=== PATIENT | female | born 1990 | race Caucasian/White ===

== ENCOUNTER → 2017-10-18 | Outpatient (CLI) | payer OTHER ==
[~2017-10-18] MED LIST: FLUO20CA19 PO; IBUP-1222 PO; PREN1TAB60 PO
== END | disposition home or self-care (01) ==
LOC: LAB 09:16
PROVIDERS: ATTEND Obstetrics & Gynecology Maternal & Fetal Medicine
DX: Z36.9 Encounter for antenatal screening, unspecified (principal)
CPT/HCPCS: 36415; 84163; 84702

== ENCOUNTER → 2017-11-18 | Outpatient (CLI) | payer OTHER | END | disposition home or self-care (01) | LOC: LAB 14:11 | PROVIDERS: ATTEND Obstetrics & Gynecology | DX: Z36.89 Encounter for other specified antenatal screening (principal) | CPT/HCPCS: 36415; 82105; 82677; 84702; 86336 ==

== ENCOUNTER 2018-02-12 10:54 | Outpatient (CLI) | payer OTHER ==
[~2018-02-12] VITALS: Ht 172.7 cm; Wt 70.0 kg
[2018-02-12 11:03] VITALS: BP 117/71
[2018-02-12 12:07] LABS: MICROSCOPIC NOT IND
[2018-02-12 12:20] LABS: CULTURE INDICATED? NO
== END 2018-02-12 13:08 | disposition home or self-care (01) ==
LOC: LDOP 10:54
PROVIDERS: ATTEND Obstetrics & Gynecology
DX: O26.892 Other specified pregnancy related conditions, second trimester (principal); R10.9 Unspecified abdominal pain; Z3A.00 Weeks of gestation of pregnancy not specified
CPT/HCPCS: 36415; 59025; 81003; 82731; 99201; G0463

== ENCOUNTER 2018-04-06 11:10 | Outpatient (CLI) | payer OTHER ==
[~2018-04-06] VITALS: Ht 172.7 cm; Wt 74.1 kg
[2018-04-06 11:38] VITALS: BP 111/65
== END 2018-04-06 12:20 ==
LOC: LDOP 11:10
PROVIDERS: ATTEND Obstetrics & Gynecology
DX: O36.8130 Decreased fetal movements, third trimester, not applicable or unspecified (principal); Z3A.37 37 weeks gestation of pregnancy
CPT/HCPCS: 59025; 99211; G0463

== ENCOUNTER 2018-04-15 05:00 | Inpatient (IN) | payer OTHER ==
[~2018-04-15] VITALS: Ht 172.7 cm; Wt 75.4 kg
[2018-04-15] MEDS ORDERED: OXYTOCIN 30U/ 0.9% NaCL 500ML 500 ML IV PRN (05:24)
[2018-04-15] MEDS ORDERED: OXYTOCIN 30U/ 0.9% NaCL 500ML 500 ML IV ONE (05:24)
[2018-04-15] MEDS ORDERED: NEWBORN KIT ONE ×2 (05:25→05:26)
[2018-04-15] MEDS ORDERED: OXYTOCIN 30U/ 0.9% NaCL 500ML 500 ML ONE ×2 (05:25→21:37)
[2018-04-15] MEDS ORDERED: FENTANYL PF 100 MCG/2ML IV PRN (05:30)
[2018-04-15] MEDS ORDERED: FENTANYL PF 100 MCG/2ML IVPush PRN (05:30)
[2018-04-15] MEDS ORDERED: PENICILLIN GK 5,000,000 UNITS in SODIUM CHLORIDE 0.9% 100 ML IVPB ONE (05:30)
[2018-04-15] MEDS ORDERED: ONDANSETRON 2MG/ML, 2ML IVPush PRN ×2 (05:30→16:30)
[2018-04-15 05:31] VITALS: BP 112/62
[2018-04-15] MEDS: LACTATED RINGERS 1,000 ML IV SCH ×3 (05:45→15:38)
[2018-04-15 06:00] LABS: BASOPHILS # (AUTO) 0.04 x10^3/uL (0-0.1); BASOPHILS % (AUTO) 1 % (0-1); EOSINOPHILS # (AUTO) 0.02 x10^3/uL (0-0.4); EOSINOPHILS % (AUTO) 0 % (1-7); LYMPHOCYTES # (AUTO) 1.58 x10^3/uL (1-3.4); LYMPHOCYTES % (AUTO) 22 % (22-44); MD NO; MEAN CORPUSCULAR HEMOGLOBIN 31.1 pg (27.0-34.8); MEAN CORPUSCULAR HGB CONC 34.6 g/dL (32.4-35.8); MEAN CORPUSCULAR VOLUME 89.7 fL (80-100); MEAN PLATELET VOLUME 10.1 fL (7.4-10.4); MONOCYTES % (AUTO) 7 % (2-9); NEUTROPHILS # (AUTO) 4.97 x10^3/uL (1.8-6.8); NEUTROPHILS % (AUTO) 70 % (42-75); PLATELET COUNT 221 x10^3/uL (130-400); RED BLOOD COUNT 3.53 x10^6/uL (3.82-5.3)
[2018-04-15] MEDS: PENICILLIN GK 2,500,000 UNITS in DEXTROSE 5% 100 ML IVPB SCH ×4 (09:56→17:48)
[2018-04-15] MEDS ORDERED: ACETAMINOPHEN 325 MG TABLET ONE (13:38)
[2018-04-15] MEDS ORDERED: ACETAMINOPHEN 325 MG TABLET PO PRN (14:00)
[2018-04-15] MEDS ORDERED: FENTANYL PF 100 MCG/2ML ONE (14:20)
[2018-04-15] MEDS ORDERED: LIDOCAINE/PF 1.5%-EPI 1:200K, 30ML ONE (14:42)
[2018-04-15] MEDS ORDERED: FENTANYL/BUPIV./NS/PF 250 ML EPIDCONT ONE (15:26)
[2018-04-15] MEDS ORDERED: D5%-LACTATED RINGERS 1,000 ML IV SCH (15:47)
[2018-04-15] MEDS ORDERED: FENTANYL/BUPIV./NS/PF 250 ML EPIDCONT SCH (16:01)
[2018-04-15] MEDS ORDERED: LACTATED RINGERS 1,000 ML IV SCH (16:01)
[2018-04-15] MEDS ORDERED: EPHEDRINE 50 MG/ML, 1ML IVPush PRN (16:30)
[2018-04-15] MEDS ORDERED: LACTATED RINGERS 1,000 ML IVBOLUS PRN (16:30)
[2018-04-15] MEDS ORDERED: DIPHENHYDRAMINE 50 MG/ML, 1ML IVPush PRN (16:30)
[2018-04-15] MEDS ORDERED: NALOXONE 0.4 MG/ML, 1ML IVPush PRN (16:30)
[2018-04-15] MEDS ORDERED: ONDANSETRON 2MG/ML, 2ML IV PRN (20:30)
[2018-04-15] MEDS ORDERED: MISOPROSTOL 200 MCG TABLET SL PRN (20:30)
[2018-04-15] MEDS ORDERED: OXYcodone/APAP 5/325MG TABLET PO PRN ×2 (20:30)
[2018-04-15] MEDS ORDERED: METHYLERGONOVINE 0.2 MG/ML IM PRN (20:30)
[2018-04-15] MEDS ORDERED: IBUPROFEN 600 MG TABLET ONE (20:55)
[2018-04-15] MEDS: IBUPROFEN 600 MG TABLET PO PRN (20:56)
[2018-04-15] MEDS: OXYTOCIN 30U/ 0.9% NaCL 500ML 500 ML IV SCH (21:41)
[2018-04-15 22:30] VITALS: BP 95/58
[2018-04-16 01:10] VITALS: BP 116/69
[2018-04-16] MEDS: IBUPROFEN 600 MG TABLET PO PRN ×2 (03:55→11:34)
[2018-04-16 04:02] VITALS: BP 108/73
[2018-04-16 04:23] LABS: BASOPHILS # (AUTO) 0.03 x10^3/uL (0-0.1); BASOPHILS % (AUTO) 0 % (0-1); EOSINOPHILS % (AUTO) 0 % (1-7); LYMPHOCYTES # (AUTO) 1.77 x10^3/uL (1-3.4); LYMPHOCYTES % (AUTO) 17 % (22-44); MD NO; MEAN CORPUSCULAR HEMOGLOBIN 30.9 pg (27.0-34.8); MEAN CORPUSCULAR HGB CONC 34.6 g/dL (32.4-35.8); MEAN CORPUSCULAR VOLUME 89.3 fL (80-100); MEAN PLATELET VOLUME 10.3 fL (7.4-10.4); MONOCYTES # (AUTO) 0.65 x10^3/uL (0.2-0.8); MONOCYTES % (AUTO) 6 % (2-9); NEUTROPHILS # (AUTO) 7.91 x10^3/uL (1.8-6.8); NEUTROPHILS % (AUTO) 76 % (42-75); PLATELET COUNT 229 x10^3/uL (130-400); RED BLOOD COUNT 3.61 x10^6/uL (3.82-5.3); RED CELL DISTRIBUTION WIDTH 12.6 % (9.6-15.2)
[2018-04-16] MEDS: OXYTOCIN 30U/ 0.9% NaCL 500ML 500 ML IV SCH (06:30)
[2018-04-16] MEDS: PRENATAL VIT/IRON/FA 1 EACH TABLET PO SCH ×2 (07:44→09:20)
[2018-04-16] MEDS: DOCUSATE 100 MG CAPSULE PO PRN (07:44)
[2018-04-16 08:04] VITALS: BP 101/64
[2018-04-16 19:45] VITALS: BP 110/72
[2018-04-17] MEDS: DOCUSATE 100 MG CAPSULE PO PRN ×2 (00:19→09:05)
[2018-04-17] MEDS: IBUPROFEN 600 MG TABLET PO PRN ×3 (00:19→12:25)
[2018-04-17 07:40] VITALS: BP 104/65
[2018-04-17] MEDS ORDERED: SERTRALINE 50MG TABLET PO SCH (09:00)
[2018-04-17] MEDS: PRENATAL VIT/IRON/FA 1 EACH TABLET PO SCH (09:05)
[2018-04-17] MEDS ORDERED: IBUP-1222 PO (11:17)
[2018-04-17] MEDS ORDERED: SERT25TA PO (11:18)
== END 2018-04-17 16:23 | disposition home or self-care (01) | DRG 775 ==
LOC: LDIP 05:00 → 2NW 22:08
PROVIDERS: ADMIT Obstetrics & Gynecology; ATTEND Obstetrics & Gynecology
PROC: 10E0XZZ Delivery of Products of Conception, External Approach (ICD-10-PCS; principal; 2018-04-15)
PROC: 0KQM0ZZ Repair Perineum Muscle, Open Approach (ICD-10-PCS; 2018-04-15)
PROC: 3E0R3BZ Introduction of Anesthetic Agent into Spinal Canal, Percutaneous Approach (ICD-10-PCS; 2018-04-15)
PROC: 00HU33Z Insertion of Infusion Device into Spinal Canal, Percutaneous Approach (ICD-10-PCS; 2018-04-15)
DX: O69.81X0 Labor and delivery complicated by cord around neck, without compression, not applicable or unspecified (principal); O99.344 Other mental disorders complicating childbirth; F41.9 Anxiety disorder, unspecified; O70.1 Second degree perineal laceration during delivery; Z37.0 Single live birth; O99.824 Streptococcus B carrier state complicating childbirth; Z3A.39 39 weeks gestation of pregnancy
CPT/HCPCS: 36415; 85025; 86850; 86900; J2540; J3490; J2590; J3010; J7120

== ENCOUNTER → 2018-09-02 | Outpatient (CLI) | payer OTHER ==
[~2018-09-02] MED LIST changes: +SERT25TA PO
[2018-09-02 12:47] LABS: MEAN CORPUSCULAR HEMOGLOBIN 29.9 pg (27.0-34.8); MEAN CORPUSCULAR HGB CONC 33.5 g/dL (32.4-35.8); MEAN CORPUSCULAR VOLUME 89.2 fL (80-100); MEAN PLATELET VOLUME 9.4 fL (7.4-10.4); PLATELET COUNT 277 x10^3/uL (130-400); RED BLOOD COUNT 4.25 x10^6/uL (3.82-5.3); RED CELL DISTRIBUTION WIDTH 12.9 % (9.6-15.2)
[2018-09-02 13:42] LABS: BASOPHILS # (AUTO) 0.05 x10^3/uL (0-0.1); BASOPHILS % (AUTO) 1 % (0-1); EOSINOPHILS # (AUTO) 1.76 x10^3/uL (0-0.4); EOSINOPHILS % (AUTO) 20 % (1-7); LYMPHOCYTES % (AUTO) 35 % (22-44); MD SCAN; MONOCYTES % (AUTO) 5 % (2-9); NEUTROPHILS # (AUTO) 3.46 x10^3/uL (1.8-6.8); NEUTROPHILS % (AUTO) 40 % (42-75)
== END | disposition home or self-care (01) ==
LOC: LAB 12:09
PROVIDERS: ATTEND Physician Assistant
DX: D72.1 Eosinophilia (principal); E79.9 Disorder of purine and pyrimidine metabolism, unspecified
CPT/HCPCS: 36415; 85025

== ENCOUNTER → 2018-10-04 | Outpatient (CLI) | payer OTHER ==
[~2018-10-04] MED LIST changes: +OMNIPAQUE 350 MG/ML, 100ML BOTTLE ONE
[2018-10-04 10:00] LABS: BASOPHILS # (AUTO) 0.07 x10^3/uL (0-0.1); BASOPHILS % (AUTO) 1 % (0-1); EOSINOPHILS # (AUTO) 0.21 x10^3/uL (0-0.4); EOSINOPHILS % (AUTO) 3 % (1-7); LYMPHOCYTES # (AUTO) 2.74 x10^3/uL (1-3.4); LYMPHOCYTES % (AUTO) 43 % (22-44); MD NO; MEAN CORPUSCULAR HEMOGLOBIN 31.1 pg (27.0-34.8); MEAN CORPUSCULAR HGB CONC 34.1 g/dL (32.4-35.8); MEAN PLATELET VOLUME 9.5 fL (7.4-10.4); MONOCYTES # (AUTO) 0.41 x10^3/uL (0.2-0.8); MONOCYTES % (AUTO) 7 % (2-9); NEUTROPHILS # (AUTO) 2.91 x10^3/uL (1.8-6.8); NEUTROPHILS % (AUTO) 46 % (42-75); PLATELET COUNT 266 x10^3/uL (130-400); RED BLOOD COUNT 4.43 x10^6/uL (3.82-5.3); RED CELL DISTRIBUTION WIDTH 12.6 % (9.6-15.2)
== END | disposition home or self-care (01) ==
LOC: RAD 09:48
PROVIDERS: ATTEND Internal Medicine
DX: R10.32 Left lower quadrant pain (principal); R10.12 Left upper quadrant pain; D72.1 Eosinophilia; G43.909 Migraine, unspecified, not intractable, without status migrainosus; E55.9 Vitamin D deficiency, unspecified; Z97.5 Presence of (intrauterine) contraceptive device
CPT/HCPCS: 36415; 74177; 85025; Q9967